=== PATIENT | female | born 1995 | race Caucasian/White ===

== ENCOUNTER 2018-08-27 20:07 | Emergency (ER) | payer OTHER ==
[~2018-08-27] VITALS: Ht 152.4 cm; Wt 51.3 kg
[2018-08-27 20:35] LABS: URINE BILIRUBIN NEGATIVE (Negative); URINE BLOOD 1+ (Negative); URINE CLARITY CLEAR; URINE COLOR YELLOW; URINE GLUCOSE-RANDOM* NEGATIVE (Negative); URINE KETONES TRACE (Negative); URINE LEUKOCYTES-REFLEX TRACE (Negative); URINE NITRITE-REFLEX NEGATIVE (Negative); URINE PROTEIN (DIPSTICK) NEGATIVE (Negative); URINE SPECIFIC GRAVITY >= 1.030 (1.005-1.035); URINE UROBILINOGEN 0.2 E.U./dl (0.2-1.0)
[2018-08-27] MEDS ORDERED: XANAX1 MG PO (20:36)
[2018-08-27] MEDS ORDERED: CELEXA10 MG PO (20:36)
[2018-08-27 20:37] LABS: HEMATOCRIT 39.4 % (37.0-47.0); HEMOGLOBIN 13.7 gm/dL (12.0-15.0); MCH 28.7 pg (26.0-34.0); MCHC 34.7 g/dL (28.0-37.0); MCV 82.7 fL (80.0-100.0); RBC 4.76 mil/uL (4.20-5.00); RDW 12.7 % (10.5-14.5); WBC 5.9 thou/uL (4.0-11.0)
[2018-08-27 20:43] LABS: CASTS None Seen /LPF (None Seen); MUCUS >6 Heavy strn/LPF (None Seen); SQUAMOUS 4-10 Moderate /LPF (0-3)
[2018-08-27 20:44] LABS: BACTERIA-REFLEX 1-9 Few /HPF (None Seen); CRYSTALS None Seen /LPF (None Seen); URINE RBC 0-2 Rare /HPF (0-2); URINE WBC-REFLEX 0-5 Rare /HPF (0-5)
[2018-08-27 20:45] LABS: INR 1.1; PROTIME 10.8 Seconds (9.3-11.4)
[2018-08-27 20:57] LABS: CALCIUM 9.1 mg/dL (8.5-10.1); CREATININE 0.7 mg/dL (0.6-1.0); POTASSIUM 3.2 mmol/L (3.5-5.1)
[2018-08-27] MEDS ORDERED: ULTRAM 50MG TAB50 MG PO (21:37)
[2018-08-27] MEDS ORDERED: ONDANSETRON HCL4 M2 PO (21:41)
[2018-08-27 22:03] VITALS: BP 105/65
== END 2018-08-27 22:06 | disposition home or self-care (01) ==
LOC: ER 20:07
PROVIDERS: Physician Assistant
DX: S20.219A Contusion of unspecified front wall of thorax, initial encounter (principal); R11.10 Vomiting, unspecified; R10.10 Upper abdominal pain, unspecified; F17.210 Nicotine dependence, cigarettes, uncomplicated; Z91.018 Allergy to other foods; Z91.040 Latex allergy status; W09.8XXA Fall on or from other playground equipment, initial encounter; Y92.830 Public park as the place of occurrence of the external cause; Y93.89 Activity, other specified; Y99.8 Other external cause status